=== PATIENT | female | born 1960 | race Caucasian/White ===

== ENCOUNTER 2016-10-31 03:44 | Emergency (ER) | payer OTHER | END 2016-10-31 07:16 | disposition home or self-care (01) | LOC: ER 03:44 | DX: R07.2 Precordial pain (principal); M25.512 Pain in left shoulder; I10 Essential (primary) hypertension; R11.0 Nausea; E78.5 Hyperlipidemia, unspecified; F41.9 Anxiety disorder, unspecified; Z79.899 Other long term (current) drug therapy; Z88.2 Allergy status to sulfonamides; Z88.6 Allergy status to analgesic agent | CPT/HCPCS: 36415 ==